=== PATIENT | male | born 1985 | race American Indian/Alaskan Native ===

== ENCOUNTER 2016-08-12 21:00 | Emergency (ER) | payer MEDICARE, OTHER ==
--- NOTE | 2016-08-12 21:07 | EDM.PDOC ---
ED HPI GENERAL MEDICAL PROBLEM - General Stated Complaint: SP MORA AMBUL Time Seen by Provider: 08/12/16 21:05 Source of Information: Reports: Patient, EMS History Limitations: Reports: No Limitations - History of Present Illness INITIAL COMMENTS - FREE TEXT/NARRATIVE: states daughter jumped onto his back, family states 11 months ago baby fell onto him. Middle Back Pain Score (Numeric/FACES): 7 - Related Data Allergies Allergy/AdvReac Type Severity Reaction Status Date / Time erythromycin base Allergy Cannot Verified 08/12/16 21:10 [Erythromycin Base] Remember Home Meds: Home Meds . [No Known Home Meds] 08/12/16 [History] Social & Family History - Tobacco Use Years of Tobacco use: 13 Used Tobacco, but Quit: No Month Tobacco Last Used: 2 weeks Second Hand Smoke Exposure: No - Alcohol Use Days Per Week of Alcohol Use: 0 - Recreational Drug Use Recreational Drug Use: Yes Drug Use in Last 12 Months: No Recreational Drug Type: Reports: Marijuana/Hashish Recreational Drug Use Frequency: Not Used In Over 1 Year ED ROS GENERAL - Review of Systems Review Of Systems: ROS reveals no pertinent complaints other than HPI. ED EXAM, UPPER BACK/NECK PAIN - Physical Exam Exam: See Below Exam Limited By: No Limitations General Appearance: Alert, WD/WN, Mild Distress, Other (tearful) Ears Exam: Hearing Grossly Normal Throat/Mouth Exam: Normal Voice, No Airway Compromise Head Exam: Atraumatic Neck Exam: Non-Tender, Full Range of Motion Nexus Criteria: No: Posterior, Midline Cervical Tenderness, Evidence of Intoxication, Altered Level of Consciousness, Focal Neurological Deficit, Painful Distraction Injuries Cardiovascular/Respiratory: Regular Rate, Rhythm GI/Abdominal: Soft, Non-Tender Back Exam: Muscle Spasm, Paraspinal Tenderness, Other (right TL region without radiculitis) Neurologic: No Motor/Sensory Deficits, Alert, Oriented x 3 Psychiatric: Tearful Lymphatic: No Adenopathy Course - Vital Signs Last Recorded V/S: Last Vital Signs Temp 36.4 C 08/12/16 21:11 Pulse 75 08/12/16 21:11 Resp 20 08/12/16 21:11 BP 163/105 H 08/12/16 21:11 Pulse Ox 100 08/12/16 21:11 - Orders/Labs/Meds Meds: Medications Discontinued Medications Generic Name Dose Route Start Last Admin Trade Name Freq PRN Reason Stop Dose Admin Hydrocodone Bitart/Acetaminophen 1 tab 08/12/16 21:29 08/12/16 21:39 [place] 325-10 Mg PO 08/12/16 21:30 1 tab ONETIME ONE Administration Ketorolac Tromethamine 30 mg 08/12/16 21:29 08/12/16 21:39 Toradol IM 08/12/16 21:30 30 mg ONETIME ONE Administration - Re-Assessments/Exams Free Text/Narrative Re-Assessment/Exam: 08/12/16 21:52 negative x-rays discussed with pt & spouse Departure - Departure Time of Disposition: 21:52 Disposition: Home, Self-Care 01 Condition: good Clinical Impression: Spasm of thoracolumbar muscle - Discharge Information Instructions: Back Pain, Adult, [facility] Forms: ED Department Discharge Additional Instructions: 1) rest and avoid bending lifting straining 2) try ice or heat to sore area 3) see clinic for possible MRI SCAN of THORACOLUMBAR REGION rx given; flexeril 10mg tid prn x 12 vicodin 5/325mg bid prn x 12
[2016-08-12] MEDS ORDERED: Acetaminophen/HYDROcodone 325-10 MG Tab PO ONE (21:29)
[2016-08-12] MEDS ORDERED: Ketorolac 30 MG/ML SDV IM ONE (21:29)
[2016-08-12 23:12] VITALS: BP 155/101
== END 2016-08-12 22:08 | disposition home or self-care (01) ==
LOC: DL.ED 21:00
DX: M62.830 Muscle spasm of back (principal); Z88.8 Allergy status to other drugs, medicaments and biological substances
CPT/HCPCS: 72080; 96372; 99283; A9270; J1885

== ENCOUNTER 2016-09-24 19:04 | Emergency (ER) | payer OTHER ==
[2016-09-24 19:15] VITALS: BP 158/111
[2016-09-24] MEDS ORDERED: Ketorolac 30 MG/ML SDV IM ONE (19:21)
--- NOTE | 2016-09-24 19:24 | EDM.PDOC ---
ED HPI GENERAL MEDICAL PROBLEM - General Chief Complaint: Abdominal Pain Stated Complaint: ABD PAIN, COMING BY AMBULANCE Time Seen by Provider: 09/24/16 19:09 Source of Information: Reports: Patient History Limitations: Reports: No Limitations - History of Present Illness INITIAL COMMENTS - FREE TEXT/NARRATIVE: sudden onset right lateral rib abd' pain RN CAMP. denies trauma. no nausea. hurts to move. no eating. Treatments RN CAMP: Reports: Other Medication(s) Right Flank Pain Score (Numeric/FACES): 8 - Related Data Allergies Allergy/AdvReac Type Severity Reaction Status Date / Time erythromycin base Allergy Cannot Verified 09/24/16 19:10 [Erythromycin Base] Remember Home Meds: Home Meds Cyclobenzaprine [Flexeril] 10 mg PO TID PRN 09/24/16 [History] Past Medical History - Past Health History Medical/Surgical History: Denies Medical/Surgical History Social & Family History - Tobacco Use Smoking Status *Q: Current Every Day Smoker Years of Tobacco use: 16 Packs/Tins Daily: 0.5 Used Tobacco, but Quit: No Month Tobacco Last Used: 2 weeks Second Hand Smoke Exposure: Yes - Caffeine Use Caffeine Use: Reports: Coffee - Alcohol Use Days Per Week of Alcohol Use: 0 - Recreational Drug Use Recreational Drug Use: Yes Drug Use in Last 12 Months: No Recreational Drug Type: Reports: Marijuana/Hashish Recreational Drug Use Frequency: Socially ED ROS GENERAL - Review of Systems Review Of Systems: ROS reveals no pertinent complaints other than HPI. ED EXAM, GI/ABD - Physical Exam Exam: See Below Exam Limited By: No Limitations General Appearance: Alert, WD/WN, Mild Distress, Other (upset) Ears: Hearing Grossly Normal Throat/Mouth: Normal Voice, No Airway Compromise Head: Atraumatic Neck: Non-Tender, Full Range of Motion Respiratory/Chest: No Respiratory Distress, Lungs Clear, Normal Breath Sounds, Other (tender right lateral rib area without gorss E/C) Cardiovascular: Regular Rate, Rhythm GI/Abdominal: Soft, Tenderness, Other (RUQ region). No: Distention, Guarding, Rebound, Rigidity Neurological: Alert, Oriented, Normal Cognition, Normal Gait, No Motor/Sensory Deficits Psychiatric: Anxious Skin Exam: Warm, Dry Lymphatic: No Adenopathy Course - Vital Signs Last Recorded V/S: Last Vital Signs Temp 36.7 C 09/24/16 19:14 Pulse 75 09/24/16 19:14 Resp 26 H 09/24/16 19:14 BP 158/111 H 09/24/16 19:14 Pulse Ox 100 09/24/16 19:14 - Orders/Labs/Meds Orders: Active Orders 24 hr Category Date Time Status DRUG SCREEN URINE BIORAD [URCHEM] Stat Lab 09/24/16 20:43 Received Sodium Chloride 0.9% [Normal Saline] 1,000 ml Med 09/24/16 20:34 Active IV .BOLUS Medication Orders Sodium Chloride (Normal Saline) 1,000 mls @ 999 mls/hr IV .BOLUS ONE Stop: 09/24/16 21:34 Last Admin: 09/24/16 20:47 Dose: 999 mls/hr Labs: Laboratory Tests 09/24/16 09/24/16 09/24/16 Range/Units 19:34 19:34 20:43 WBC 12.4 H (5.0-10.0) 10^3/uL RBC 4.95 (4.6-6.2) 10^6/uL Hgb 14.9 (14.0-18.0) g/dL Hct 45.0 (40.0-54.0) % MCV 90.9 (80-100) fL MCH 30.1 (27.0-34.0) pg MCHC 33.1 (33.0-35.0) g/dL Plt Count 262 (150-450) 10^3/uL Neut % (Auto) 73.3 (42.2-75.2) % Lymph % (Auto) 17.3 L (20.5-50.1) % [place] % (Auto) 7.3 (2-8) % Eos % (Auto) 1.8 (1.0-3.0) % Baso % (Auto) 0.3 (0.0-1.0) % Sodium 140 (135-145) mmol/L Potassium 4.1 (3.6-5.0) mmol/L Chloride 104 (101-111) mmol/L Carbon Dioxide 25.0 (21.0-31.0) mmol/L Anion Gap 15.1 BUN 18 (7-18) mg/dL Creatinine 1.4 H (0.6-1.3) mg/dL Est Cr Clr Drug Dosing 75.05 mL/min Estimated GFR (MDRD) 58 BUN/Creatinine Ratio 12.85 Glucose 145 H (74-105) mg/dL Calcium 8.7 (8.4-10.2) mg/dl Total Bilirubin 0.5 (0.2-1.0) mg/dL AST 67 H (10-42) IU/L ALT 45 (10-60) IU/L Alkaline Phosphatase 88 (42-121) IU/L Total Protein 7.0 (6.7-8.2) g/dl Albumin 3.9 (3.2-5.5) g/dl Globulin 3.1 Albumin/Globulin Ratio 1.26 Amylase 117 H (28-100) U/L Lipase 172 H (22-51) U/L Urine Color Dark yellow (YELLOW) Urine Appearance Slightly cloudy (CLEAR) Urine pH 7.0 (5.0-9.0) Ur Specific [place] 1.025 (1.005-1.030) Urine Protein 30 H (NEGATIVE) Urine Glucose (UA) Negative (NEGATIVE) Urine Ketones Trace H (NEGATIVE) Urine Occult Blood Negative (NEGATIVE) Urine Nitrite Negative (NEGATIVE) Urine Bilirubin Negative (NEGATIVE) Urine Urobilinogen 4.0 H (0.2-1.0) mg/dL Ur Leukocyte Esterase Negative (NEGATIVE) Meds: Medications Generic Name Dose Route Start Last Admin Trade Name Freq PRN Reason Stop Dose Admin Sodium Chloride 1,000 mls @ 999 mls/hr 09/24/16 20:34 09/24/16 20:47 Normal Saline IV 09/24/16 21:34 999 mls/hr .BOLUS ONE Administration Discontinued Medications Generic Name Dose Route Start Last Admin Trade Name Freq PRN Reason Stop Dose Admin Iopamidol 100 ml 09/24/16 20:34 09/24/16 20:50 Isovue-300 (61%) IVPUSH 09/24/16 20:35 100 ml ONETIME ONE Administration Ketorolac Tromethamine 30 mg 09/24/16 19:21 09/24/16 19:42 Toradol IM 09/24/16 19:22 Not Given ONETIME ONE Ketorolac Tromethamine 15 mg 09/24/16 19:38 09/24/16 19:42 Toradol IVPUSH 09/24/16 19:39 15 mg ONETIME ONE Administration Morphine Sulfate 2 mg 09/24/16 20:34 09/24/16 20:46 Morphine IVPUSH 09/24/16 20:35 2 mg ONETIME ONE Administration - Re-Assessments/Exams Free Text/Narrative Re-Assessment/Exam: 09/24/16 21:33 case discussed with Pt & spouse who had GB problems and knows what to do. Departure - Departure Time of Disposition: 21:34 Disposition: Home, Self-Care 01 Condition: Good Clinical Impression: Cholelithiases Qualifiers: Cholelithiasis location: gallbladder Cholecystitis presence: without cholecystitis Biliary obstruction: without biliary obstruction Qualified Code(s) : K80.20 - Calculus of gallbladder without cholecystitis without obstruction - Discharge Information Instructions: Cholelithiasis, [id number] Forms: ED Department Discharge Additional Instructions: 1) see clinic tomorrow for GALL BLADDER ULTRASOUND 2) avoid fatty oily greasy fried foods - My Orders Last 24 Hours: My Active Orders 09/24/16 20:34 Sodium Chloride 0.9% [Normal Saline] 1,000 ml IV .BOLUS 09/24/16 20:43 DRUG SCREEN URINE BIORAD [URCHEM] Stat - Assessment/Plan Last 24 Hours: My Active Orders 09/24/16 20:34 Sodium Chloride 0.9% [Normal Saline] 1,000 ml IV .BOLUS 09/24/16 20:43 DRUG SCREEN URINE BIORAD [URCHEM] Stat
[2016-09-24] MEDS ORDERED: Ketorolac 30 MG/ML SDV IVPUSH ONE (19:38)
[2016-09-24] MEDS ORDERED: Iopamidol 612 MG/ML 100 ML Bottle IVPUSH ONE (20:34)
[2016-09-24] MEDS ORDERED: Sodium Chloride 0.9% 1,000 ML IV ONE (20:34)
[2016-09-24] MEDS ORDERED: Morphine 2 MG/ML Syringe IVPUSH ONE (20:34)
[2016-09-24] MEDS ORDERED: Acetaminophen/HYDROcodone 325-10 MG Tab ONE (21:40)
== END 2016-09-24 21:46 | disposition home or self-care (01) ==
LOC: DL.ED 19:04
DX: K80.20 Calculus of gallbladder without cholecystitis without obstruction (principal); F17.210 Nicotine dependence, cigarettes, uncomplicated; Z88.1 Allergy status to other antibiotic agents
CPT/HCPCS: 36415; 74177; 80053; 80305; 81003; 82150; 83690; 85025; 96361; 96374; 96375; 99284; A9270; J1885; J2270; J7030; Q9967

== ENCOUNTER 2016-10-24 07:51 | Emergency (ER) | payer OTHER ==
--- NOTE | 2016-10-24 08:14 | EDM.PDOC ---
ED HPI GENERAL MEDICAL PROBLEM - General Chief Complaint: Abdominal Pain Stated Complaint: BY AMBULANCE Time Seen by Provider: 10/24/16 08:02 Source of Information: Reports: Patient, Old Records, RN, RN Notes Reviewed History Limitations: Reports: No Limitations - History of Present Illness INITIAL COMMENTS - FREE TEXT/NARRATIVE: Arrives from home by ambulance with c/o "gallbladder attack". Pt seen here in September 2016 with similar Sx's at which time he was Dx's with gallstones. Pt was to f/u in clinic for further evaluation and outpt. US but he did not f/u. Pt states that today he was woke at 0530HRS by severe RUQ abdominal pain. He last ate last night around 2000HRS a light meal of toast and milk. He had some initial nausea, but not currently. Denies radiating pain, vomiting, fever, chills, flank pain, or urinary Sx's. Onset: Unknown/Unsure Onset Date: 10/24/16 Onset Time: 05:30 Duration: Constant Location: Reports: Abdomen Quality: Reports: Ache, Same as Previous Episode Severity: Severe Improves with: Reports: None Worsens with: Reports: None Associated Symptoms: Reports: No Other Symptoms Right Upper Abdomen Pain Score (Numeric/FACES): 8 - Related Data Allergies Allergy/AdvReac Type Severity Reaction Status Date / Time erythromycin base Allergy Cannot Verified 10/24/16 08:03 [Erythromycin Base] Remember Home Meds: Home Meds Cyclobenzaprine [Flexeril] 10 mg PO TID PRN 09/24/16 [History] Past Medical History Gastrointestinal History: Reports: Cholelithiasis Social & Family History - Family History Cardiac: Reports: Hypertension GI: Reports: Cholelithiasis Endocrine/Metabolic: Reports: Diabetes, type II - Tobacco Use Smoking Status *Q: Current Every Day Smoker Years of Tobacco use: 16 Packs/Tins Daily: 0.5 Used Tobacco, but Quit: No Month Tobacco Last Used: 2 weeks Second Hand Smoke Exposure: Yes - Alcohol Use Days Per Week of Alcohol Use: 0 - Recreational Drug Use Recreational Drug Use: Yes Drug Use in Last 12 Months: No Recreational Drug Type: Reports: Marijuana/Hashish Recreational Drug Use Frequency: Socially - Living Situation & Occupation Living situation: Reports: with Family ED ROS GENERAL - Review of Systems Review Of Systems: ROS reveals no pertinent complaints other than HPI. ED EXAM, GI/ABD - Physical Exam Exam: See Below Exam Limited By: No Limitations General Appearance: Alert, WD/WN, No Apparent Distress Eyes: Bilateral: Normal Appearance Ears: Hearing Grossly Normal Nose: Normal Inspection Throat/Mouth: Normal Inspection Head: Atraumatic, Normocephalic Neck: Normal Inspection, Supple, Non-Tender, Full Range of Motion Respiratory/Chest: No Respiratory Distress, Lungs Clear, Normal Breath Sounds, No Accessory Muscle Use, Chest Non-Tender Cardiovascular: Normal Peripheral Pulses, Regular Rate, Rhythm, No Edema, No Gallop, No JVD, No Murmur, No Rub GI/Abdominal Exam: Normal Bowel Sounds, Soft, No Organomegaly, No Distention, No Abnormal Bruit, Tender (acutely tender to palpation at RUQ). No: Guarding, Rigid, Rebound (Male) Exam: Deferred Rectal (Males) Exam: Deferred Back Exam: Normal Inspection, Full Range of Motion. No: CVA Tenderness (L), CVA Tenderness (R) Extremities: Normal Inspection Neurological: Alert, Oriented, Normal Cognition, Normal Gait, No Motor/Sensory Deficits Psychiatric: Normal Mood Skin Exam: Warm, Dry, Intact, Normal Color, No Rash Course - Vital Signs Last Recorded V/S: Last Vital Signs Temp 36.2 C 10/24/16 09:12 Pulse 66 10/24/16 09:12 Resp 18 10/24/16 09:12 BP 144/91 H 10/24/16 09:12 Pulse Ox 98 10/24/16 09:12 - Orders/Labs/Meds Orders: Active Orders 24 hr Category Date Time Status Peripheral IV Care [RC] . DIRECTED Care 10/24/16 08:14 Active Abdomen Pelvis w Cont [CT] Stat Exams 10/24/16 08:16 Taken Sodium Chloride 0.9% [Saline Flush] Med 10/24/16 08:14 Active 10 ml FLUSH ASDIRECTED PRN Peripheral IV Insertion Adult [OM.PC] Stat Oth 10/24/16 08:14 Ordered Medication Orders Sodium Chloride (Saline Flush) 10 ml FLUSH ASDIRECTED PRN PRN Reason: Keep Vein Open Last Admin: 10/24/16 08:26 Dose: 10 ml Admin: 10/24/16 08:21 Dose: 10 ml Labs: Laboratory Tests 08/12/0210/24/16 10/24/16 Range/Units 08:08 08:08 08:18 WBC 9.0 (5.0-10.0) 10^3/uL RBC 5.22 (4.6-6.2) 10^6/uL Hgb 16.0 (14.0-18.0) g/dL Hct 48.0 (40.0-54.0) % MCV 92.0 (80-100) fL MCH 30.7 (27.0-34.0) pg MCHC 33.3 (33.0-35.0) g/dL Plt Count 291 (150-450) 10^3/uL Neut % (Auto) 62.1 (42.2-75.2) % Lymph % (Auto) 22.8 (20.5-50.1) % [place] % (Auto) 10.4 H (2-8) % Eos % (Auto) 4.3 H (1.0-3.0) % Baso % (Auto) 0.4 (0.0-1.0) % Sodium 142 (135-145) mmol/L Potassium 3.6 (3.6-5.0) mmol/L Chloride 105 (101-111) mmol/L Carbon Dioxide 25.0 (21.0-31.0) mmol/L Anion Gap 15.6 BUN 11 (7-18) mg/dL Creatinine 0.9 (0.6-1.3) mg/dL Est Cr Clr Drug Dosing 116.74 mL/min Estimated GFR (MDRD) > 60 BUN/Creatinine Ratio 12.22 Glucose 107 H (74-105) mg/dL Lactic Acid (0.5-2.2) mmol/L Calcium 9.0 (8.4-10.2) mg/dl Total Bilirubin 0.5 (0.2-1.0) mg/dL AST 109 H (10-42) IU/L ALT 63 H (10-60) IU/L Alkaline Phosphatase 81 (42-121) IU/L Total Protein 6.8 (6.7-8.2) g/dl Albumin 3.6 (3.2-5.5) g/dl Globulin 3.2 Albumin/Globulin Ratio 1.13 Amylase 44 (28-100) U/L Lipase 24 (22-51) U/L Urine Color (YELLOW) Urine Appearance (CLEAR) Urine pH (5.0-9.0) Ur Specific [place] (1.005-1.030) Urine Protein (NEGATIVE) Urine Glucose (UA) (NEGATIVE) Urine Ketones (NEGATIVE) Urine Occult Blood (NEGATIVE) Urine Nitrite (NEGATIVE) Urine Bilirubin (NEGATIVE) Urine Urobilinogen (0.2-1.0) mg/dL Ur Leukocyte Esterase (NEGATIVE) Urine RBC /HPF Urine WBC (0-5/HPF) /HPF Ur Epithelial Cells /HPF Urine Bacteria (0-FEW/HPF) /HPF Urine Mucus /LPF Urine Opiates Screen Negative (NEGATIVE) Ur Oxycodone Screen Negative (NEGATIVE) Urine Methadone Screen Negative (NEGATIVE) Ur Barbiturates Screen Negative (NEGATIVE) U Tricyclic Antidepress Negative (NEGATIVE) Ur Phencyclidine Scrn Negative (NEGATIVE) Ur Amphetamine Screen Negative (NEGATIVE) U Methamphetamines Scrn Positive H (NEGATIVE) Urine MDMA Screen Negative (NEGATIVE) U Benzodiazepines Scrn Negative (NEGATIVE) Urine Cocaine Screen Negative (NEGATIVE) U Marijuana (THC) Screen Positive H (NEGATIVE) Ethyl Alcohol < 5 mg/dL 10/24/16 10/24/16 Range/Units 08:18 08:49 WBC (5.0-10.0) 10^3/uL RBC (4.6-6.2) 10^6/uL Hgb (14.0-18.0) g/dL Hct (40.0-54.0) % MCV (80-100) fL MCH (27.0-34.0) pg MCHC (33.0-35.0) g/dL Plt Count (150-450) 10^3/uL Neut % (Auto) (42.2-75.2) % Lymph % (Auto) (20.5-50.1) % [place] % (Auto) (2-8) % Eos % (Auto) (1.0-3.0) % Baso % (Auto) (0.0-1.0) % Sodium (135-145) mmol/L Potassium (3.6-5.0) mmol/L Chloride (101-111) mmol/L Carbon Dioxide (21.0-31.0) mmol/L Anion Gap BUN (7-18) mg/dL Creatinine (0.6-1.3) mg/dL Est Cr Clr Drug Dosing mL/min Estimated GFR (MDRD) BUN/Creatinine Ratio Glucose (74-105) mg/dL Lactic Acid 1.4 (0.5-2.2) mmol/L Calcium (8.4-10.2) mg/dl Total Bilirubin (0.2-1.0) mg/dL AST (10-42) IU/L ALT (10-60) IU/L Alkaline Phosphatase (42-121) IU/L Total Protein (6.7-8.2) g/dl Albumin (3.2-5.5) g/dl Globulin Albumin/Globulin Ratio Amylase (28-100) U/L Lipase (22-51) U/L Urine Color Yellow (YELLOW) Urine Appearance Clear (CLEAR) Urine pH 6.0 (5.0-9.0) Ur Specific [place] >= 1.030 (1.005-1.030) Urine Protein 30 H (NEGATIVE) Urine Glucose (UA) Negative (NEGATIVE) Urine Ketones Negative (NEGATIVE) Urine Occult Blood Trace-intact H (NEGATIVE) Urine Nitrite Negative (NEGATIVE) Urine Bilirubin Negative (NEGATIVE) Urine Urobilinogen 0.2 (0.2-1.0) mg/dL Ur Leukocyte Esterase Negative (NEGATIVE) Urine RBC Not seen /HPF Urine WBC 0-5 (0-5/HPF) /HPF Ur Epithelial Cells Rare /HPF Urine Bacteria Rare (0-FEW/HPF) /HPF Urine Mucus Rare /LPF Urine Opiates Screen (NEGATIVE) Ur Oxycodone Screen (NEGATIVE) Urine Methadone Screen (NEGATIVE) Ur Barbiturates Screen (NEGATIVE) U Tricyclic Antidepress (NEGATIVE) Ur Phencyclidine Scrn (NEGATIVE) Ur Amphetamine Screen (NEGATIVE) U Methamphetamines Scrn (NEGATIVE) Urine MDMA Screen (NEGATIVE) U Benzodiazepines Scrn (NEGATIVE) Urine Cocaine Screen (NEGATIVE) U Marijuana (THC) Screen (NEGATIVE) Ethyl Alcohol mg/dL Meds: Medications Generic Name Dose Route Start Last Admin Trade Name Freq PRN Reason Stop Dose Admin Sodium Chloride 10 ml 10/24/16 08:14 10/24/16 08:26 Saline Flush FLUSH 10 ml ASDIRECTED PRN Administration Keep Vein Open Discontinued Medications Generic Name Dose Route Start Last Admin Trade Name Freq PRN Reason Stop Dose Admin Hydromorphone HCl 1 mg 10/24/16 08:15 10/24/16 08:27 Dilaudid IVPUSH 10/24/16 08:16 1 mg ONETIME ONE Administration Iopamidol 100 ml 10/24/16 08:15 10/24/16 08:43 Isovue-300 (61%) IVPUSH 10/24/16 08:16 100 ml ONETIME ONE Administration Ondansetron HCl 4 mg 10/24/16 08:15 10/24/16 08:26 Zofran IV 10/24/16 08:16 4 mg ONETIME ONE Administration - Radiology Interpretation Free Text/Narrative:: CT Abd/Pelvis w/contrast: mild thickening of GB wall, see Rad. report. CT Results Date: 10/24/16 Departure - Departure Time of Disposition: 09:20 Disposition: DC/Tfer to Acute Hospital 02 Condition: Fair Clinical Impression: Cholecystitis Cholelithiases Qualifiers: Cholelithiasis location: gallbladder and bile duct Cholecystitis presence: with cholecystitis Cholecystitis acuity: acute Biliary obstruction: without biliary obstruction Qualified Code(s): K80.62 - Calculus of gallbladder and bile duct with acute cholecystitis without obstruction - Discharge Information Forms: ED Department Discharge, Interfacility Transfer EMTALA - My Orders Last 24 Hours: My Active Orders 10/24/16 08:14 Peripheral IV Care [RC] . DIRECTED Sodium Chloride 0.9% [Saline Flush] 10 ml FLUSH ASDIRECTED PRN Peripheral IV Insertion Adult [OM.PC] Stat 10/24/16 08:16 Abdomen Pelvis w Cont [CT] Stat - Assessment/Plan Last 24 Hours: My Active Orders 10/24/16 08:14 Peripheral IV Care [RC] . DIRECTED Sodium Chloride 0.9% [Saline Flush] 10 ml FLUSH ASDIRECTED PRN Peripheral IV Insertion Adult [OM.PC] Stat 10/24/16 08:16 Abdomen Pelvis w Cont [CT] Stat
[2016-10-24] MEDS ORDERED: Ondansetron 4 MG/2 ML SDV IV ONE (08:15)
[2016-10-24] MEDS ORDERED: Iopamidol 612 MG/ML 100 ML Bottle IVPUSH ONE (08:15)
[2016-10-24] MEDS ORDERED: HYDROmorphone 1 MG/ML Syringe IVPUSH ONE (08:15)
[2016-10-24] MEDS: Sodium Chloride 0.9% 10 ML Syringe FLUSH PRN ×2 (08:21→08:26)
[2016-10-24 08:39] LABS: CHLORIDE,CL 105 mmol/L (101-111); SODIUM,NA 142 mmol/L (135-145)
[2016-10-24 09:13] VITALS: BP 144/91
== END 2016-10-24 09:39 ==
LOC: DL.ED 07:51
DX: K80.62 Calculus of gallbladder and bile duct with acute cholecystitis without obstruction (principal); F17.210 Nicotine dependence, cigarettes, uncomplicated
CPT/HCPCS: 36415; 74177; 80053; 80305; 81001; 82150; 83605; 83690; 85025; 96374; 96375; 99285; G0480; J1170; J2405; J7050; Q9967; 99284

== ENCOUNTER 2016-11-24 00:26 | Emergency (ER) | payer MEDICAID, OTHER ==
[2016-11-24 00:32] VITALS: BP 141/99
--- NOTE | 2016-11-24 00:48 | EDM.PDOC ---
<Alissa Matthews - Last Filed: 11/24/16 01:35> ED HPI GENERAL MEDICAL PROBLEM - General Chief Complaint: Wound Recheck Stated Complaint: BELLY BUTTON PAIN/GALLBLADDER REMOVED 3 WEEKS AGO Time Seen by Provider: 11/24/16 00:45 Source of Information: Reports: Patient - History of Present Illness INITIAL COMMENTS - FREE TEXT/NARRATIVE: 31 yo M is here with his girlfriend for wound check. He reports having gallbladder removal surgery (cholecystectomy) in [place] about 3 weeks ago. He complaints of whitish drainage and redness from the umbilical incision site since 11-22-16. There is associated pain around the umbilicus. Tylenol and Advil have been tried for this. Prior to that he reports he had been healing fine. Denies associated trauma/injury/fall, fever, scratching the involved incision, recent overexertion, recent medication change, nausea, vomiting, chest pain, dysuria, constipation, cessation of flatus, loss of appetite, diffuse abdominal pain. He continues to smoke cigarettes. Continues to have good appetite. Unsure h/o MRSA. Onset Date: 11/22/16 Quality: Reports: Sharp Severity: Severe Improves with: Reports: None Worsens with: Reports: None Abdomen Pain Score (Numeric/FACES): 7 - Related Data Allergies Allergy/AdvReac Type Severity Reaction Status Date / Time erythromycin base Allergy Cannot Verified 11/24/16 00:32 [Erythromycin Base] Remember Home Meds: Home Meds . [No Known Home Meds] 11/24/16 [History] Past Medical History - Past Health History Medical/Surgical History: Denies Medical/Surgical History HEENT History: Reports: None Cardiovascular History: Reports: None Respiratory History: Reports: None Gastrointestinal History: Reports: Cholelithiasis Genitourinary History: Reports: None Musculoskeletal History: Reports: Other (See Below) Other Musculoskeletal History: surgery to stretch tendons in both legs Neurological History: Reports: Cerebral Palsy Psychiatric History: Reports: None Endocrine/Metabolic History: Reports: None Hematologic History: Reports: None Immunologic History: Reports: None Oncologic (Cancer) History: Reports: None Dermatologic History: Reports: None - Infectious Disease History Infectious Disease History: Reports: Chicken Pox - Past Surgical History HEENT Surgical History: Reports: Other (See Below) Other HEENT Surgeries/Procedures: surgery on right ear Cardiovascular Surgical History: Reports: None Respiratory Surgical History: Reports: None GI Surgical History: Reports: Cholecystectomy Male Surgical History: Reports: None Endocrine Surgical History: Reports: None Neurological Surgical History: Reports: None Musculoskeletal Surgical History: Reports: None Dermatological Surgical History: Reports: None Social & Family History - Family History Family Medical History: Noncontributory Cardiac: Reports: Hypertension GI: Reports: Cholelithiasis Endocrine/Metabolic: Reports: Diabetes, type II - Tobacco Use Smoking Status *Q: Current Every Day Smoker Years of Tobacco use: 17 Packs/Tins Daily: 0.5 Used Tobacco, but Quit: No Month Tobacco Last Used: 2 weeks Second Hand Smoke Exposure: Yes - Caffeine Use Caffeine Use: Reports: Coffee, Soda, Tea - Alcohol Use Days Per Week of Alcohol Use: 0 - Recreational Drug Use Recreational Drug Use: Yes Drug Use in Last 12 Months: Yes Recreational Drug Type: Reports: Marijuana/Hashish Recreational Drug Use Frequency: Socially - Living Situation & Occupation Living situation: Reports: with Family ED ROS GENERAL - Review of Systems Review Of Systems: See Below Constitutional: Reports: No Symptoms HEENT: Reports: No Symptoms Respiratory: Reports: No Symptoms Cardiovascular: Reports: No Symptoms Endocrine: Reports: No Symptoms GI/Abdominal: Reports: Abdominal Pain (around the umbilicus) : Reports: No Symptoms Skin: Reports: Other (Redness and discharge along umbilical incision site.) Neurological: Reports: No Symptoms Psychiatric: Reports: No Symptoms Hematologic/Lymphatic: Reports: No Symptoms ED EXAM, GENERAL - Physical Exam Exam: See Below Exam Limited By: No Limitations General Appearance: Alert, WD/WN, Moderate Distress Throat/Mouth: Normal Inspection Head: Atraumatic, Normocephalic Neck: Supple Respiratory/Chest: No Respiratory Distress, Lungs Clear, Normal Breath Sounds, No Accessory Muscle Use Cardiovascular: Regular Rate, Rhythm, No Edema, No Murmur GI/Abdominal: Normal Bowel Sounds, Soft, No Distention, Tender (Tender, edematous, and erythematous all around (circumferential) the umbilicus. There is a partially healing incision site [from the recent cholecystectomy] superior to the umbilicus that has purulent discharge from one edge of this incision site. ) Extremities: Normal Inspection, Normal Range of Motion, Non-Tender Neurological: Alert, Oriented, Normal Cognition Psychiatric: Normal Affect Skin Exam: Warm, Dry, Rash (There is a partially healing incision site [from the recent cholecystectomy] superior to the umbilicus that has purulent discharge from one edge of this incision site. ), Tattoo(s) Lymphatic: No Adenopathy Course - Vital Signs Last Recorded V/S: Last Vital Signs Temp 36.0 C 11/24/16 00:29 Pulse 86 11/24/16 00:29 Resp 18 11/24/16 00:29 BP 141/99 H 11/24/16 00:29 Pulse Ox 100 11/24/16 00:29 - Orders/Labs/Meds Orders: Active Orders 24 hr Category Date Time Status CULTURE BLOOD [BC] Stat Lab 11/24/16 01:00 Results CULTURE BLOOD [BC] Stat Lab 11/24/16 01:05 Received CULTURE WOUND [RM] Stat Lab 11/24/16 00:37 Received Blood Culture x2 Reflex Set [OM.PC] Stat Oth 11/24/16 00:55 Ordered Labs: Laboratory Tests 11/24/16 11/24/16 11/24/16 Range/Units 01:05 01:05 01:05 WBC 12.0 H (5.0-10.0) 10^3/uL RBC 4.99 (4.6-6.2) 10^6/uL Hgb 15.2 (14.0-18.0) g/dL Hct 45.8 (40.0-54.0) % MCV 91.8 (80-100) fL MCH 30.5 (27.0-34.0) pg MCHC 33.2 (33.0-35.0) g/dL Plt Count 258 (150-450) 10^3/uL Neut % (Auto) 65.1 (42.2-75.2) % Lymph % (Auto) 21.4 (20.5-50.1) % Parmer % (Auto) 10.5 H (2-8) % Eos % (Auto) 2.7 (1.0-3.0) % Baso % (Auto) 0.3 (0.0-1.0) % Sodium 140 (135-145) mmol/L Potassium 3.4 L (3.6-5.0) mmol/L Chloride 104 (101-111) mmol/L Carbon Dioxide 25.0 (21.0-31.0) mmol/L Anion Gap 14.4 BUN 16 (7-18) mg/dL Creatinine 0.9 (0.6-1.3) mg/dL Est Cr Clr Drug Dosing 116.74 mL/min Estimated GFR (MDRD) > 60 BUN/Creatinine Ratio 17.77 Glucose 120 H (74-105) mg/dL Lactic Acid 1.6 (0.5-2.2) mmol/L Calcium 8.9 (8.4-10.2) mg/dl Total Bilirubin 0.5 (0.2-1.0) mg/dL AST 23 (10-42) IU/L ALT 34 (10-60) IU/L Alkaline Phosphatase 83 (42-121) IU/L Total Protein 6.9 (6.7-8.2) g/dl Albumin 3.8 (3.2-5.5) g/dl Globulin 3.1 Albumin/Globulin Ratio 1.23 Meds: Medications Discontinued Medications Generic Name Dose Route Start Last Admin Trade Name Freq PRN Reason Stop Dose Admin Iopamidol 100 ml 11/24/16 01:33 11/24/16 01:41 Isovue-300 (61%) IVPUSH 11/24/16 01:34 100 ml ONETIME ONE Administration Departure - Departure Disposition: Home, Self-Care 01 Clinical Impression: Cellulitis of abdominal wall - Discharge Information Instructions: Cellulitis, Adult, [id number] Forms: ED Department Discharge Care Plan Goals: The patient was advised of the examination, lab and CT results during the visit. The patient was given an oral dose of Keflex (500 mg) and Bactrim DS while in the ED. The patient was discharged with a script for Keflex (500 mg) # 30 to take 1 by mouth 3 times per day for 10 days and Bactrim DS #20 to take 1 by mouth 2 times per day for 10 days. If the patient has any additional symptoms or concerns, the patient should follow-up with his primary care facility or return to the emergency department. - My Orders Last 24 Hours: My Active Orders 11/24/16 00:37 CULTURE WOUND [RM] Stat - Assessment/Plan Last 24 Hours: My Active Orders 11/24/16 00:37 CULTURE WOUND [RM] Stat <Magdiel Mason - Last Filed: 11/24/16 02:31> Departure - Departure Time of Disposition: 02:24 Condition: Fair
[2016-11-24 01:28] LABS: CHLORIDE,CL 104 mmol/L (101-111); SODIUM,NA 140 mmol/L (135-145)
[2016-11-24] MEDS ORDERED: Iopamidol 612 MG/ML 100 ML Bottle IVPUSH ONE (01:33)
[2016-11-24] MEDS ORDERED: Sulfamethoxazole/Trimethoprim 800-160 MG Tab PO ONE (02:26)
[2016-11-24] MEDS ORDERED: Cephalexin 500 MG Cap PO ONE (02:26)
== END 2016-11-24 02:38 | disposition home or self-care (01) ==
LOC: DL.ED 00:26
DX: L03.311 Cellulitis of abdominal wall (principal); Z90.49 Acquired absence of other specified parts of digestive tract; Z98.890 Other specified postprocedural states; Z88.1 Allergy status to other antibiotic agents; F17.210 Nicotine dependence, cigarettes, uncomplicated
CPT/HCPCS: 36415; 74177; 80053; 83605; 85025; 87040; 87070; 99283; A9270; Q9967; 87077; 87186

== ENCOUNTER 2020-08-26 13:43 | Emergency (ER) | payer SELFPAY ==
--- NOTE | 2020-08-26 13:43 | EDM.PDOC ---
ED HPI GENERAL MEDICAL PROBLEM - General Chief Complaint: ENT Problem Stated Complaint: IN BY AMBULANCE Time Seen by Provider: 08/26/20 13:43 Source of Information: Reports: Patient, EMS, Old Records, RN, RN Notes Reviewed History Limitations: Reports: No Limitations - History of Present Illness INITIAL COMMENTS - FREE TEXT/NARRATIVE: Pt arrives to ER from home by [facility] with c/o onset of left face pain and swelling yesterday. Pt reports that he had a fever last night, but does not know what his temperature was. Today the pain is worse, and he has chills and fatigue. Denies toothache, injury, or ear pain. Onset: Gradual Onset Date: 08/25/20 Duration: Constant, Getting Worse Location: Reports: Face Quality: Reports: Ache, Pressure Severity: Severe Improves with: Reports: None Worsens with: Reports: Eating Associated Symptoms: Reports: No Other Symptoms Left Face/Facial Pain Score (Numeric/FACES): 7 - Related Data Allergies Allergy/AdvReac Type Severity Reaction Status Date / Time erythromycin base Allergy Cannot Verified 08/26/20 13:56 [Erythromycin Base] Remember Home Meds: Home Meds . [No Known Home Meds] 11/24/16 [History] Past Medical History - Past Health History Medical/Surgical History: Denies Medical/Surgical History HEENT History: Reports: None Cardiovascular History: Reports: None Respiratory History: Reports: None Gastrointestinal History: Reports: Cholelithiasis Genitourinary History: Reports: None Musculoskeletal History: Reports: Other (See Below) Other Musculoskeletal History: surgery to stretch tendons in both legs Neurological History: Reports: Cerebral Palsy Psychiatric History: Reports: None Endocrine/Metabolic History: Reports: None Hematologic History: Reports: None Immunologic History: Reports: None Oncologic (Cancer) History: Reports: None Dermatologic History: Reports: None - Infectious Disease History Infectious Disease History: Reports: Chicken Pox - Past Surgical History HEENT Surgical History: Reports: Other (See Below) Other HEENT Surgeries/Procedures: surgery on right ear Cardiovascular Surgical History: Reports: None Respiratory Surgical History: Reports: None GI Surgical History: Reports: Cholecystectomy Male Surgical History: Reports: None Endocrine Surgical History: Reports: None Neurological Surgical History: Reports: None Musculoskeletal Surgical History: Reports: None Dermatological Surgical History: Reports: None Social & Family History - Family History Family Medical History: No Pertinent Family History Cardiac: Reports: Hypertension GI: Reports: Cholelithiasis Endocrine/Metabolic: Reports: Diabetes, type II - Caffeine Use Caffeine Use: Reports: Coffee, Soda, Tea - Living Situation & Occupation Living situation: Reports: with Family ED ROS ENT - Review of Systems Review Of Systems: Comprehensive ROS is negative, except as noted in HPI. ED EXAM, ENT - Physical Exam Exam: See Below Exam Limited By: No Limitations General Appearance: Alert, WD/WN, No Apparent Distress Eye Exam: Bilateral Eye: Normal Inspection Ears: Normal External Exam, Normal Canal, Hearing Grossly Normal, Normal TMs Nose: Normal Inspection, Normal Mucousa, No Blood Mouth/Throat: Normal Inspection, Normal Gums, Normal Lips, Normal Oropharynx, Normal Teeth Head: Atraumatic, Normocephalic, Facial Tenderness (With left parotid gland area swollen, firm and tender, no erythema, no increased warmth) Neck: Normal Inspection, Supple, Non-Tender, Full Range of Motion. No: Lymphadenopathy (L), Lymphadenopathy (R) Respiratory/Chest: No Respiratory Distress, Lungs Clear, Normal Breath Sounds, No Accessory Muscle Use, Chest Non-Tender Cardiovascular: Regular Rate, Rhythm Neurological: Alert, Oriented, No Motor/Sensory Deficits (No acute deficits) Psychiatric: Normal Affect, Normal Mood Skin: Warm, Dry, Intact, Normal Color, No Rash Course - Vital Signs Last Recorded V/S: Last Vital Signs Temp 97.8 F 08/26/20 13:50 Pulse 88 08/26/20 13:50 Resp 16 08/26/20 13:50 BP 156/98 H 08/26/20 13:50 Pulse Ox 97 08/26/20 13:50 - Orders/Labs/Meds Orders: Active Orders 24 hr Category Date Time Status Peripheral IV Care [RC] . DIRECTED Care 08/26/20 13:51 Active Max Facial Sinus wo Cont [CT] Stat Exams 08/26/20 13:56 Taken Sodium Chloride 0.9% [Saline Flush] Med 08/26/20 13:50 Active 10 ml FLUSH ASDIRECTED PRN Peripheral IV Insertion Adult [OM.PC] Stat Oth 08/26/20 13:51 Ordered Medication Orders Sodium Chloride (Sodium Chloride 0.9% 10 Ml Syringe) 10 ml FLUSH ASDIRECTED PRN PRN Reason: Keep Vein Open Last Admin: 08/26/20 14:09 Dose: 10 ml Documented by: SAVANNAH Labs: Laboratory Tests 08/26/20 08/26/20 08/26/20 Range/Units 13:48 13:48 13:48 WBC 12.2 H (5.0-10.0) 10^3/uL RBC 5.14 (4.6-6.2) 10^6/uL Hgb 15.5 (14.0-18.0) g/dL Hct 46.4 (40.0-54.0) % MCV 90.3 (80-100) fL MCH 30.2 (27.0-34.0) pg MCHC 33.4 (33.0-35.0) g/dL Plt Count 329 (150-450) 10^3/uL Neut % (Auto) 70.6 (42.2-75.2) % Lymph % (Auto) 15.3 L (20.5-50.1) % Stafford % (Auto) 11.3 H (2-8) % Eos % (Auto) 2.5 (1.0-3.0) % Baso % (Auto) 0.3 (0.0-1.0) % Sodium 136 (136-145) mmol/L Potassium 3.8 (3.5-5.1) mmol/L Chloride 103 (98-107) mmol/L Carbon Dioxide 25 (21-32) mmol/L Anion Gap 11.8 (7-13) mEq/L BUN 9 (7-18) mg/dL Creatinine 0.94 (0.70-1.30) mg/dL Est Cr Clr Drug Dosing TNP Estimated GFR (MDRD) > 60 BUN/Creatinine Ratio 9.6 (No establ ref range) Glucose 106 H (70-99) mg/dL Lactic Acid 1.1 (0.4-2.0) mmol/L Calcium 8.2 L (8.5-10.1) mg/dL Total Bilirubin 0.7 (0.2-1.0) mg/dL AST 21 (15-37) U/L ALT 43 (16-63) U/L Alkaline Phosphatase 99 (46-116) U/L C-Reactive Protein 6.1 H (0.0-0.9) mg/dL Total Protein 7.3 (6.4-8.2) g/dL Albumin 3.1 L (3.4-5.0) g/dL Globulin 4.2 Albumin/Globulin Ratio 0.74 Amylase 139 H (25-115) U/L Meds: Medications Generic Name Dose Route Start Last Admin Trade Name Cheyanne PRN Reason Stop Dose Admin Sodium Chloride 10 ml 08/26/20 13:50 08/26/20 14:09 Sodium Chloride 0.9% 10 Ml Syringe FLUSH 10 ml ASDIRECTED PRN Administration Keep Vein Open Discontinued Medications Generic Name Dose Route Start Last Admin Trade Name Cheyanne PRN Reason Stop Dose Admin Dexamethasone 20 mg 08/26/20 13:55 08/26/20 14:07 Dexamethasone 4 Mg/Ml Sdv IVPUSH 08/26/20 13:56 20 mg ONETIME ONE Administration Hydromorphone HCl 1 mg 08/26/20 13:55 08/26/20 14:08 Hydromorphone 1 Mg/Ml Syringe IVPUSH 08/26/20 13:56 1 mg ONETIME ONE Administration Sodium Chloride 1,000 mls @ 999 mls/hr 08/26/20 13:51 08/26/20 14:08 Normal Saline IV 08/26/20 14:51 999 mls/hr .BOLUS ONE Administration Ondansetron HCl 4 mg 08/26/20 13:51 08/26/20 14:09 Ondansetron 4 Mg/2 Ml Sdv IV 08/26/20 13:52 4 mg ONETIME ONE Administration Departure - Departure Time of Disposition: 14:58 Disposition: Home, Self-Care 01 Condition: Good Clinical Impression: Parotid sialolithiasis, Sialadenitis - Discharge Information *PRESCRIPTION DRUG MONITORING PROGRAM REVIEWED*: No *COPY OF PRESCRIPTION DRUG MONITORING REPORT IN PATIENT ORQUIDEA: No Instructions: Salivary Stone, Parotitis, [id number] Forms: ED Department Discharge Additional Instructions: Rx: Dicloxicillin 500mg Rx: Decadron 4mg Rx: Frostproof 5mg/325mg Suck on sour candy, like lemon drops to increase saliva production. Warm compress to left face. Follow up in clinic Saturday if not improved. Sepsis Event Note (ED) - Focused Exam Vital Signs: Vital Signs Temp Pulse Resp BP Pulse Ox 08/26/20 13:50 97.8 F 88 16 156/98 H 97 - My Orders Last 24 Hours: My Active Orders 08/26/20 13:50 Sodium Chloride 0.9% [Saline Flush] 10 ml FLUSH ASDIRECTED PRN 08/26/20 13:51 Peripheral IV Care [RC] . DIRECTED Peripheral IV Insertion Adult [OM.PC] Stat 08/26/20 13:56 Max Facial Sinus wo Cont [CT] Stat - Assessment/Plan Last 24 Hours: My Active Orders 08/26/20 13:50 Sodium Chloride 0.9% [Saline Flush] 10 ml FLUSH ASDIRECTED PRN 08/26/20 13:51 Peripheral IV Care [RC] . DIRECTED Peripheral IV Insertion Adult [OM.PC] Stat 08/26/20 13:56 Max Facial Sinus wo Cont [CT] Stat
[2020-08-26] MEDS ORDERED: Sodium Chloride 0.9% 10 ML Syringe FLUSH PRN (13:50)
[2020-08-26] MEDS ORDERED: Ondansetron 4 MG/2 ML SDV IV ONE (13:51)
[2020-08-26] MEDS ORDERED: Sodium Chloride 0.9% 1,000 ML IV ONE (13:51)
[2020-08-26 13:52] VITALS: BP 156/98; PULSE 88
[2020-08-26] MEDS ORDERED: HYDROmorphone 1 MG/ML Syringe IVPUSH ONE (13:55)
[2020-08-26] MEDS ORDERED: Dexamethasone 4 MG/ML SDV IVPUSH ONE (13:55)
[2020-08-26 14:15] LABS: ANION GAP 11.8 mEq/L (7-13); CHLORIDE,CL 103 mmol/L (98-107); SODIUM,NA 136 mmol/L (136-145)
--- NOTE | 2020-08-26 15:40 | CT ---
PROCEDURE INFORMATION: Exam: CT Maxillofacial Without Contrast Exam date and time: 08/26/2020 2:26 PM Age: 35 years old Clinical indication: Mass, lump, or swelling; Other: Left side; Other: Left face pain; Additional info: L face pain/swelling, sialolithiasis/sialoadenitis TECHNIQUE: Imaging protocol: Computed tomography images of the face without contrast. Radiation optimization: All CT scans at this facility use at least one of these dose optimization techniques: automated exposure control; mA and/or kV adjustment per patient size (includes targeted exams where dose is matched to clinical indication); or iterative reconstruction. COMPARISON: No relevant prior studies available. FINDINGS: Orbital cavity: The orbits are normal. Bones/joints: The mandible is normal. There is no evidence of acute fracture. Paranasal sinuses: There is mild mucosal thickening in the sphenoid sinus. Mastoid air cells: The right mastoid air cells are underdeveloped. The left mastoid air cells are unremarkable. Soft tissues: . There is mild edema in the subcutaneous fat planes of the left lateral face in the region of the parotid gland and masseter muscle. Submandibular/Parotid glands: The parotid and submandibular salivary glands are normal Dental: There is absence of the crown of the left 3rd molar. Other findings: No calculi are seen in the salivary ducts. IMPRESSION: Subcutaneous edema lateral to the left parotid gland and masseter muscle. No focal parotid abnormality is identified.
== END 2020-08-26 15:31 | disposition home or self-care (01) ==
LOC: DL.ED 13:43
DX: K11.5 Sialolithiasis (principal); K11.20 Sialoadenitis, unspecified; Z88.1 Allergy status to other antibiotic agents
CPT/HCPCS: 36415; 70486; 80053; 82150; 83605; 85025; 86140; 96374; 96375; 99283; 99284-25; J1100; J1170; J2405; J7030